=== PATIENT | female | born 1990 | race Asian ===

== ENCOUNTER 2017-06-10 13:30 | Inpatient (IN) | payer SELFPAY ==
[~2017-06-10] VITALS: Ht 164 cm; Wt 72.1 kg
[2017-06-10] MEDS ORDERED: LACTATED RINGERS 1,000 ML IV SCH (13:43)
[2017-06-10] MEDS ORDERED: AMPICILLIN 2,000 MG in NACL 0.9% MINI-BAG PLUS 100 ML IV SCH (13:45)
[2017-06-10] MEDS ORDERED: CARBOPROST 250 MCG/ML AMP IM PRN (13:45)
[2017-06-10] MEDS ORDERED: OXYTOCIN 10 UNITS/ML VIAL IM SCH (13:45)
[2017-06-10] MEDS ORDERED: NALBUPHINE HYDROCHLORIDE 10 MG/ML VIAL IVP PRN (13:45)
[2017-06-10] MEDS ORDERED: METHYLERGONOVINE 0.2 MG/ML AMP IM PRN ×2 (13:45→23:50)
[2017-06-10] MEDS ORDERED: PROMETHAZINE 25 MG/ML VIAL IVP PRN (13:45)
[2017-06-10] MEDS ORDERED: ROPIVACAINE 0.2%/NS PREMIX 250 ML EPI ONE (13:46)
[2017-06-10 14:42] LABS: BASOPHILS # (AUTO) 0.1 K/uL (0.00-0.22); BASOPHILS % (AUTO) 1.2 % (0.0-2.0); EOSINOPHILS # (AUTO) 0.1 K/uL (0-0.4); EOSINOPHILS % (AUTO) 1.5 % (0.0-4.0); HEMATOCRIT 35.5 % (36-48); HEMOGLOBIN 11.5 g/dL (12.0-16.0); LYMPHOCYTES # (AUTO) 1.4 K/uL (2.5-16.5); LYMPHOCYTES % (AUTO) 20.1 % (20.5-51.1); MEAN CORPUSCULAR HEMOGLOBIN 26 pg (27-31); MEAN CORPUSCULAR HGB CONC 33 g/dL (33-37); MEAN CORPUSCULAR VOLUME 81 fL (80-94); MONOCYTES # (AUTO) 0.6 K/uL (0.8-1.0); NEUTROPHILS # (AUTO) 4.9 K/uL (1.8-7.7); NEUTROPHILS % (AUTO) 69.2 % (42.2-75.2); PLATELET COUNT (AUTO) 219 K/uL (140-450); RED CELL DISTRIBUTION WIDTH 13.1 % (11.6-13.7); WHITE BLOOD COUNT (AUTO) 7.1 K/uL (4.8-10.8)
[2017-06-10 14:48] LABS: APPEARANCE,URINE CLEAR (CLEAR); BILIRUBIN,URINE NEGATIVE (NEGATIVE); BLOOD, URINE 3+ (NEGATIVE); COLOR,URINE YELLOW (YELLOW); LEUKOCYTE ESTERASE ,URINE NEGATIVE (NEGATIVE); NITRITE, URINE NEGATIVE (NEGATIVE); PH,URINE 7.5 (5.0-9.0); UGLUCOSE NEGATIVE (NEGATIVE)
[2017-06-10 14:51] LABS: ANION GAP 12.1 (8-16); CREATININE 0.6 mg/dL (0.6-1.3); POTASSIUM 4.1 mmol/L (3.5-5.1)
[2017-06-10 14:55] LABS: WBC,URINE 0-3 /HPF (0-5)
[2017-06-10 14:57] LABS: ALBUMIN 2.4 g/dL (3.4-5.0); TOTAL BILIRUBIN 0.4 mg/dL (0.0-1.0)
[2017-06-10] MEDS ORDERED: AMPICILLIN 2,000 MG VIAL ONE (15:14)
[2017-06-10] MEDS ORDERED: OXYTOCIN 20 UNITS/LR PREMIX 1,000 ML IV ONE (15:32)
[2017-06-10] MEDS ORDERED: AMPICILLIN 1,000 MG in NACL 0.9% MINI-BAG PLUS 50 ML IV SCH (18:00)
[2017-06-10] MEDS ORDERED: AMPICILLIN 1,000 MG VIAL ONE (19:32)
[2017-06-10] MEDS ORDERED: OXYTOCIN 20 UNITS/LR PREMIX 1,000 ML IV SCH (22:00)
[2017-06-10] MEDS ORDERED: OXYTOCIN 10 UNITS/ML VIAL ONE (23:19)
[2017-06-10] MEDS ORDERED: MEASLES, MUMPS, AND RUBELLA 1 VIAL SQVAC PRN (23:50)
[2017-06-10] MEDS ORDERED: TEMAZEPAM 15 MG CAP PO PRN (23:50)
[2017-06-10] MEDS ORDERED: BENZOCAINE/MENTHOL 20%-0.5% 60 GM CAN TP PRN (23:50)
[2017-06-10] MEDS ORDERED: OXYTOCIN 10 UNITS/ML VIAL IM PRN (23:50)
[2017-06-10] MEDS ORDERED: WITCH HAZEL 40 PAD PACKAGE TP PRN (23:50)
[2017-06-10] MEDS ORDERED: IBUPROFEN 800 MG TAB PO PRN (23:50)
[2017-06-11] MEDS ORDERED: HYDROcodone/APAP 5/325 MG 1 TAB TAB ONE (01:08)
[2017-06-11 06:14] LABS: HEMATOCRIT 30.6 % (36-48)
[2017-06-11] MEDS: oxyCODONE/APAP 5/325 MG 1 TAB TAB PO PRN ×4 (08:03→22:14)
[2017-06-11 08:13] LABS: RAPID PLASMA REAGIN NON-REACTIVE (Non Reactiv)
--- NOTE | 2017-06-11 09:06 | NUR ---
PATIENT HAS BEEN SCREENED AND CATEGORIZED LOW NUTRITION RISK. PATIENT WILL BE SEEN WITHIN 7 DAYS OF ADMISSION. 06/17/[address]
[2017-06-11] MEDS ORDERED: AMMONIA AROMATIC 1 INHL INH ONE (10:26)
[2017-06-11] MEDS ORDERED: DOCUSATE SOD/SENNA 50/8.6 MG 1 TAB PO SCH (21:00)
[2017-06-12] MEDS: HYDROcodone/APAP 5/325 MG 1 TAB TAB PO PRN ×3 (03:08→13:08)
== END 2017-06-12 14:15 | disposition home or self-care (01) | DRG 775 ==
LOC: MFCC 13:30
PROVIDERS: ADMIT Obstetrics & Gynecology; ATTEND Obstetrics & Gynecology
PROC: 10D07Z6 Extraction of Products of Conception, Vacuum, Via Natural or Artificial Opening (ICD-10-PCS; principal; 2017-06-10)
PROC: 0W8NXZZ Division of Female Perineum, External Approach (ICD-10-PCS; 2017-06-10)
PROC: 00HU33Z Insertion of Infusion Device into Spinal Canal, Percutaneous Approach (ICD-10-PCS; 2017-06-10)
PROC: 3E0R3CZ (ICD-10-PCS; 2017-06-10)
PROC: 3E0234Z Introduction of Serum, Toxoid and Vaccine into Muscle, Percutaneous Approach (ICD-10-PCS; 2017-06-12)
DX: O75.81 Maternal exhaustion complicating labor and delivery (principal); Z23 Encounter for immunization; Z37.0 Single live birth; Z3A.38 38 weeks gestation of pregnancy
CPT/HCPCS: 36415; 51702; 80053; 81001; 85018; 85025; 86592; 86886; 86900; 86901; 90715; J0290; J2590; J2795; J7120